=== PATIENT | male | born 1980 ===

== ENCOUNTER 2021-05-18 02:39 | Inpatient (IN) | payer MEDICARE, OTHER ==
[~2021-05-18] VITALS: Ht 180 cm; Wt 104.0 kg
[2021-05-18] MEDS ORDERED: TRANEXAMIC ACID INJECTION 1,000 MG in NS (IVPB) 50 ML IV ONE (03:15)
[2021-05-18 03:26] LABS: HEMATOCRIT 44 % (40-54); HEMOGLOBIN 15.5 g/dL (13.3-17.7); MEAN CORPUSCULAR HEMOGLOBIN 32 pg (25-34); MEAN CORPUSCULAR HGB CONC 35 g/dL (32-36); MEAN CORPUSCULAR VOLUME 90 fL (80-99); MEAN PLATELET VOLUME 11.7 fL (9.0-12.2); PLATELET COUNT 276 10^3/uL (130-400); WHITE BLOOD COUNT 13.9 10^3/uL (4.3-11.0)
[2021-05-18] MEDS ORDERED: NS IV 500 ML 500 ML IV SCH (03:30)
[2021-05-18] MEDS ORDERED: LACTATED RINGERS 1,000 ML IV ONE (03:30)
[2021-05-18] MEDS ORDERED: ceFAZolin INJECTION 1,000 MG in WATER (STERILE) FOR INJECTION 10 ML IV ONE (03:30)
[2021-05-18] MEDS ORDERED: TETANUS,DIPTH,PERTUSS P/F (BOOSTRIX) 0.5 ML VIAL IM ONE (03:30)
[2021-05-18 03:32] LABS: ALBUMIN 4.5 GM/DL (3.2-4.5); CHLORIDE 99 MMOL/L (98-107); SODIUM 138 MMOL/L (135-145)
[2021-05-18 03:33] LABS: CALCIUM 8.9 MG/DL (8.5-10.1)
[2021-05-18 03:34] LABS: GLUCOSE 103 MG/DL (70-105); TOTAL PROTEIN 8.5 GM/DL (6.4-8.2)
[2021-05-18] MEDS ORDERED: PROPOFOL DRIP (ICU) 100 ML IV ONE ×2 (03:34→04:45)
[2021-05-18 03:35] LABS: CARBON DIOXIDE 20 MMOL/L (21-32)
[2021-05-18 03:36] LABS: BILIRUBIN,TOTAL 0.4 MG/DL (0.1-1.0)
[2021-05-18 03:38] LABS: ALKALINE PHOSPHATASE 72 U/L (40-136); CREATININE SERUM 1.19 MG/DL (0.60-1.30); GFR ESTIMATED > 60
[2021-05-18 03:39] LABS: BILIRUBIN,DIRECT 0.1 MG/DL (0.0-0.3); BILIRUBIN,INDIRECT 0.3 MG/DL; BUN/CREATININE RATIO 9
[2021-05-18 03:41] LABS: ALANINE AMINOTRANSFERASE 66 U/L (0-55)
[2021-05-18] MEDS ORDERED: NS 100 ML (IVPB) BAG IV ONE (04:00)
[2021-05-18] MEDS ORDERED: CATHETER FLUSH 10 ML SYR IV PRN (04:00)
[2021-05-18] MEDS ORDERED: IOHEXOL 350 MG/ML 100 ML (OMNIPAQUE 350) VIAL IV ONE (04:00)
[2021-05-18] MEDS ORDERED: HOLD METFORMIN - RECEIVED CONTRAST 20 ML VIAL IV SCH (04:00)
[2021-05-18 04:05] LABS: BILIRUBIN,URINE NEGATIVE (NEGATIVE); CLARITY,URINE CLEAR; COLOR,URINE YELLOW; GLUCOSE, URINE (UA) NEGATIVE (NEGATIVE); KETONES,URINE TRACE (NEGATIVE); LEUKOCYTE ESTERASE ,URINE NEGATIVE (NEGATIVE); NITRITE,URINE NEGATIVE (NEGATIVE); PH,URINE 5.5 (5-9); PROTEIN,URINE NEGATIVE (NEGATIVE)
[2021-05-18] MEDS: TRANEXAMIC ACID INJECTION 1,000 MG in NS (IVPB) 250 ML IV SCH ×2 (04:11→08:04)
[2021-05-18 04:16] LABS: AMPHETAMINE SCREEN, URINE NEGATIVE (NEGATIVE); BARBITURATE SCREEN URINE NEGATIVE (NEGATIVE); BENZODIAZEPINES SCREEN URINE NEGATIVE (NEGATIVE); CANNABINOID SCREEN, URINE NEGATIVE (NEGATIVE); COCAINE SCREEN URINE NEGATIVE (NEGATIVE); METHADONE STAT NEGATIVE (NEGATIVE); METHAMPHETAMINE SCREEN URINE S NEGATIVE (NEGATIVE); OPIATE SCREEN URINE NEGATIVE (NEGATIVE); OXYCODONE STAT NEGATIVE (NEGATIVE); PROPOXYPHENE STAT NEGATIVE (NEGATIVE); TRICYCLIC ANTIDEPRESSANTS SCRE NEGATIVE (NEGATIVE)
[2021-05-18 04:19] LABS: BACTERIA,URINE TRACE /HPF; RBC,URINE 0-2 /HPF; WBC,URINE 0-2 /HPF
[2021-05-18] MEDS ORDERED: LIDOCAINE 1% INJ 20 ML 20 ML VIAL ONE (04:25)
[2021-05-18] MEDS ORDERED: fentaNYL INJ 100 MCG/2 ML AMP ONE (04:44)
[2021-05-18] MEDS ORDERED: LACTATED RINGERS 1,000 ML IV SCH (05:00)
[2021-05-18] MEDS ORDERED: fentaNYL INJ 100 MCG/2 ML AMP IVP PRN (05:00)
[2021-05-18] MEDS: PROPOFOL DRIP (ICU) 100 ML IV SCH ×2 (05:13→07:25)
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
[2021-05-18 06:30] VITALS: BP 129/88
[2021-05-18] MEDS ORDERED: MIDAZOLAM 5 MG/5 ML (VERSED) VIAL ONE (07:29)
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
[2021-05-18] MEDS ORDERED: MIDAZOLAM 10 MG/2 ML (VERSED) VIAL IVP ONE (07:45)
[2021-05-18 07:50] VITALS: BP 133/74
[2021-05-18] MEDS ORDERED: ACETAMINOPHEN 325 MG TABLET PO PRN (08:45)
[2021-05-18] MEDS ORDERED: ACETAMINOPHEN 650 MG SUPP (TYLENOL) PR PRN (08:45)
[2021-05-18] MEDS ORDERED: ONDANSETRON 4 MG/2 ML (SDV) Z0FRAN IV PRN (08:45)
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
[2021-05-18] MEDS ORDERED: PANTOPRAZOLE 40 MG (PROTONIX) VIAL IV SCH (09:00)
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
[2021-05-18] MEDS: fentaNYL INJ 100 MCG/2 ML AMP IV PRN ×2 (09:53→11:36)
[2021-05-18 10:15] VITALS: BP 123/78
[2021-05-18] MEDS ORDERED: MULT-1136 PO (10:26)
[2021-05-18] MEDS ORDERED: HYDR25TA4 PO (10:26)
[2021-05-18] MEDS ORDERED: CYAN500T8 PO (10:26)
[2021-05-18] MEDS ORDERED: DOCU100T7 PO (10:26)
[2021-05-18] MEDS ORDERED: MULT-985 PO (10:26)
[2021-05-18] MEDS ORDERED: DIPH-757 PO (10:26)
[2021-05-18] MEDS ORDERED: FISH1CAP15 PO (10:26)
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
[2021-05-18] MEDS ORDERED: THIAMINE 100 MG/ML 2 ML (VITAMIN B-1) VIAL IV ONE (10:30)
[2021-05-18] MEDS ORDERED: FOLIC ACID 5MG/ML 10 ML IV ONE (10:30)
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
[2021-05-18 11:35] VITALS: BP 117/75
[2021-05-18] MEDS: LACTATED RINGERS 1,000 ML IV SCH ×2 (13:10→15:39)
[2021-05-18] MEDS ORDERED: ETOMIDATE IV SOLN 20 MG/10 ML VIAL IV ONE (16:49)
[2021-05-18] MEDS ORDERED: ROCURONIUM 10 MG/ML 5 ML SYRINGE IV ONE (16:49)
[2021-05-18] MEDS ORDERED: fentaNYL INJ 100 MCG/2 ML AMP IV ONE (16:49)
[2021-05-18] MEDS ORDERED: MIDAZOLAM 5 MG/5 ML (VERSED) VIAL IJ ONE (16:49)
[2021-05-19] MEDS ORDERED: ONDA4TAB11 PO (01:03)
[2021-05-19] MEDS ORDERED: CEPH500C PO (01:03)
[2021-05-19] MEDS ORDERED: ACHD5005 PO (01:03)
== END 2021-05-18 15:00 | disposition left against medical advice (07) | DRG 579 ==
LOC: ER 02:43 → ICU 06:30 → UNDODISIN 05-23 09:29
PROVIDERS: ADMIT Surgery; ATTEND Surgery
PROC: 0JQ80ZZ Repair Abdomen Subcutaneous Tissue and Fascia, Open Approach (ICD-10-PCS; principal; 2021-05-18)
PROC: 0JQ10ZZ Repair Face Subcutaneous Tissue and Fascia, Open Approach (ICD-10-PCS; 2021-05-18)
PROC: 0JQ50ZZ Repair Left Neck Subcutaneous Tissue and Fascia, Open Approach (ICD-10-PCS; 2021-05-18)
PROC: 0BH17EZ Insertion of Endotracheal Airway into Trachea, Via Natural or Artificial Opening (ICD-10-PCS; 2021-05-18)
PROC: 5A1935Z Respiratory Ventilation, Less than 24 Consecutive Hours (ICD-10-PCS; 2021-05-18)
DX: S31.115A Laceration without foreign body of abdominal wall, periumbilic region without penetration into peritoneal cavity, initial encounter (principal); J96.01 Acute respiratory failure with hypoxia; J90 Pleural effusion, not elsewhere classified; S01.21XA Laceration without foreign body of nose, initial encounter; S01.81XA Laceration without foreign body of other part of head, initial encounter; S11.91XA Laceration without foreign body of unspecified part of neck, initial encounter; X99.1XXA Assault by knife, initial encounter; Y92.29 Other specified public building as the place of occurrence of the external cause; S06.0X0A Concussion without loss of consciousness, initial encounter; F41.9 Anxiety disorder, unspecified; F17.210 Nicotine dependence, cigarettes, uncomplicated; F10.129 Alcohol abuse with intoxication, unspecified; Z23 Encounter for immunization
CPT/HCPCS: 12014; 12053; 31500; 36415; 51702; 70450; 70486; 71045; 71275; 72125; 74177; 80048; 80076; 80306; 80320; 81000; 84478; 85027; 86850; 86900; 86901; 86920; 90471; 90715; 93005; 93041; 94002; 94799; 96361; 96374; 96375; 99291; 99292

== ENCOUNTER 2021-05-18 21:34 | Emergency (ER) | payer MEDICARE ==
[~2021-05-18] VITALS: Ht 180.3 cm; Wt 100.0 kg
[~2021-05-18 21:34] MED LIST: CYAN500T8 PO; DIPH-757 PO; DOCU100T7 PO; FISH1CAP15 PO; HYDR25TA4 PO; MULT-1136 PO; MULT-985 PO
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
[2021-05-18] MEDS ORDERED: ONDANSETRON 4 MG/2 ML (SDV) Z0FRAN IVP ONE (22:30)
[2021-05-18] MEDS ORDERED: LACTATED RINGERS 1,000 ML IV ONE (22:30)
[2021-05-18] MEDS ORDERED: ceFAZolin INJECTION 1,000 MG in WATER (STERILE) FOR INJECTION 10 ML IV ONE (22:30)
[2021-05-18 22:48] LABS: BASOPHILS % (AUTO) 0 % (0-10); EOSINOPHILS # (AUTO) 0.1 10^3/uL (0.0-0.3); EOSINOPHILS % (AUTO) 1 % (0-10); HEMATOCRIT 44 % (40-54); HEMOGLOBIN 15.2 g/dL (13.3-17.7); LYMPHOCYTES # (AUTO) 1.6 10^3/uL (1.0-4.0); LYMPHOCYTES % (AUTO) 15 % (12-44); MEAN CORPUSCULAR HEMOGLOBIN 31 pg (25-34); MEAN CORPUSCULAR HGB CONC 35 g/dL (32-36); MEAN CORPUSCULAR VOLUME 89 fL (80-99); MEAN PLATELET VOLUME 11.6 fL (9.0-12.2); MONOCYTES # (AUTO) 0.7 10^3/uL (0.0-1.0); MONOCYTES % (AUTO) 7 % (0-12); NEUTROPHILS # (AUTO) 8.2 10^3/uL (1.8-7.8); NEUTROPHILS % (AUTO) 77 % (42-75); PLATELET COUNT 194 10^3/uL (130-400); WHITE BLOOD COUNT 10.8 10^3/uL (4.3-11.0)
[2021-05-18 22:59] LABS: ALBUMIN 3.6 GM/DL (3.2-4.5); CHLORIDE 108 MMOL/L (98-107); POTASSIUM 3.8 MMOL/L (3.6-5.0); SODIUM 140 MMOL/L (135-145)
[2021-05-18 23:01] LABS: GLUCOSE 128 MG/DL (70-105); TOTAL PROTEIN 6.7 GM/DL (6.4-8.2)
[2021-05-18 23:03] LABS: BILIRUBIN,TOTAL 0.4 MG/DL (0.1-1.0); CARBON DIOXIDE 20 MMOL/L (21-32)
[2021-05-18 23:05] LABS: ALKALINE PHOSPHATASE 67 U/L (40-136); CREATININE SERUM 1.01 MG/DL (0.60-1.30); GFR ESTIMATED > 60
[2021-05-18 23:06] LABS: BUN/CREATININE RATIO 9
[2021-05-18 23:08] LABS: ALANINE AMINOTRANSFERASE 45 U/L (0-55)
[2021-05-18 23:17] LABS: BILIRUBIN,URINE NEGATIVE (NEGATIVE); CLARITY,URINE CLEAR; COLOR,URINE YELLOW; GLUCOSE, URINE (UA) NEGATIVE (NEGATIVE); KETONES,URINE NEGATIVE (NEGATIVE); LEUKOCYTE ESTERASE ,URINE NEGATIVE (NEGATIVE); NITRITE,URINE NEGATIVE (NEGATIVE); PROTEIN,URINE NEGATIVE (NEGATIVE)
[2021-05-18 23:27] LABS: BACTERIA,URINE TRACE /HPF; WBC,URINE 0-2 /HPF
[2021-05-19] MEDS ORDERED: CEPH500C PO (01:03)
[2021-05-19] MEDS ORDERED: ACHD5005 PO (01:03)
[2021-05-19] MEDS ORDERED: ONDA4TAB11 PO (01:03)
[2021-05-19 01:13] VITALS: BP 141/79
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
== END 2021-05-19 01:13 | disposition home or self-care (01) ==
LOC: EDUNIT# 21:34 → ER 21:38
DX: S31.619A Laceration without foreign body of abdominal wall, unspecified quadrant with penetration into peritoneal cavity, initial encounter (principal); Z23 Encounter for immunization; W26.0XXA Contact with knife, initial encounter
CPT/HCPCS: 36415; 74176; 80053; 81000; 85025